=== PATIENT | male | born 1980 | race Two or more races ===

== ENCOUNTER 2018-05-03 15:48 | Emergency (ER) | payer BC, OTHER ==
--- NOTE | 2018-05-03 16:09 | PDOC ---
Rapid Medical Evaluation Medical Evaluation: Allergies Allergy/AdvReac Type Severity Reaction Status Date / Time No Known Allergies Allergy Verified 10/04/12 22:07 05/03/18 16:00 I have performed a brief in-person evaluation of this patient. The patient presents with a chief complaint of: [place] "something pop" in upper abd and radiating down umbilicus today while at work. No n/v/f/c or change in BM. Dx w/ ?umbilical hernia remotely Pertinent physical exam findings:Tachy to 101 F and sarahy very uncomfortable w/ reducible but painful hernia to umbilicus I have ordered the following:labs The patient will proceed to the ED for further evaluation Discharge Disposition - Diagnosis Abdominal pain Qualifiers: Abdominal location: periumbilical Qualified Code(s): R10.33 - Periumbilical pain - Referrals - Patient Instructions - Post Discharge Activity
[2018-05-03 16:11] VITALS: BP 122/72; TEMP 98.5; BMI 29.0
[2018-05-03 18:41] LABS: BASO % 1.1 % (0-2.0); EOS % 1.2 % (0-4.5); HEMATOCRIT 40.4 % (35.4-49); HEMOGLOBIN 13.5 GM/dL (11.7-16.9); MCH 28.7 pg (25.7-33.7); MCHC 33.4 g/dl (32.0-35.9); MEAN CELL VOLUME 86.1 fl (80-96); MEAN PLT VOLUME 7.7 fl (7.5-11.1); MONO % 5.6 % (3.8-10.2); NEUT % 58.1 % (42.8-82.8); PLATELET COUNT 201 K/MM3 (134-434); RBC 4.69 M/mm3 (4.00-5.60); WHITE BLOOD COUNT 9.7 K/mm3 (4.0-10.0)
[2018-05-03] MEDS ORDERED: SODIUM CHLORIDE 0.9% 500 ML INFUS.BAG IV ONE (19:15)
[2018-05-03 19:21] LABS: URINE APPEARANCE CLEAR; URINE BILIRUBIN NEGATIVE (<2.0 mg/dL); URINE COLOR YELLOW; URINE GLUCOSE (UA) NEGATIVE (NEGATIVE); URINE KETONE NEGATIVE (NEGATIVE); URINE LEUK ESTERASE NEGATIVE (NEGATIVE); URINE NITRITE NEGATIVE (NEGATIVE); URINE PROTEIN NEGATIVE (NEGATIVE)
--- NOTE | 2018-05-03 19:21 | PDOC ---
History of Present Illness - General Chief Complaint: Pain, Acute Stated Complaint: ABD PAIN Time Seen by Provider: 05/03/18 16:10 - History of Present Illness Initial Comments: The patient is a 37M who presents with 1 day of umbilical abdominal pain after feeling a 'pop' s/p lifting something heavy. He states he has a several year history of having an umbilical hernia. He states that he generally does not have pain at this site, it is always reducible, and he denies symptoms of obstruction. He denies fevers/chills, N/V/C/D, or blood in his stool. His main concern is if he needs surgery at this point or if he will be able to go back to work Sunday. 05/03/18 19:16 Past History - Past Medical History Allergies/Adverse Reactions: Allergies Allergy/AdvReac Type Severity Reaction Status Date / Time No Known Allergies Allergy Verified 05/03/18 16:07 Home Medications: Ambulatory Orders NK [No Known Home Medication] 05/03/18 COPD: No Other medical history: DENIES. - Immunization History Td Vaccination: No Immunization Up to Date: No - Suicide/Smoking/Psychosocial Hx Smoking Status: No Smoking History: Former smoker Have you smoked in the past 12 months: Yes Number of Cigarettes Smoked Daily: 0 Cigars Per Day: 0 Information on smoking cessation initiated: No Review of Systems - Review of Systems Able to Perform ROS?: Yes Comments:: GENERAL/CONSTITUTIONAL: No fever or chills. No weakness HEAD, EYES, EARS, NOSE AND THROAT: No change in vision. No ear pain or discharge. No sore throat CARDIOVASCULAR: No chest pain or shortness of breath RESPIRATORY: No cough, wheezing, or hemoptysis GASTROINTESTINAL: No nausea, vomiting, diarrhea or constipation GENITOURINARY: No dysuria, frequency, or change in urination MUSCULOSKELETAL: No joint or muscle swelling or pain. No neck or back pain SKIN: No rash NEUROLOGIC: No headache, vertigo, loss of consciousness, or change in strength/ sensation ENDOCRINE: No increased thirst. No abnormal weight change HEMATOLOGIC/LYMPHATIC: No anemia, easy bleeding, or history of blood clots ALLERGIC/IMMUNOLOGIC: No hives or skin allergy 05/03/18 19:21 Is the patient limited Vietnamese proficient: No *Physical Exam - Vital Signs Last Vital Signs Temp Pulse Resp BP Pulse Ox 98.5 F 101 H 19 122/72 100 08/10/18 16:07 05/03/18 16:07 05/03/18 16:07 05/03/18 16:07 05/03/18 16:07 - Physical Exam Comments: GENERAL: Awake, alert, and fully oriented, in no acute distress HEAD: No signs of trauma, normocephalic, atraumatic EYES: PERRL, EOMI, sclera anicteric, conjunctiva clear ENT: Hearing grossly normal, nares patent, oropharynx clear without exudates. Moist mucosa NECK: Normal ROM, supple LUNGS: No distress, speaks full sentences, clear to auscultation bilaterally HEART: Regular rate and rhythm, normal S1 and S2, no murmurs appreciated, peripheral pulses normal and equal bilaterally ABDOMEN: Soft, 1cm x 1cm umbilical hernia, reducible, mild TTP at site of hernia , normoactive bowel sounds. No guarding, no rebound EXTREMITIES : Normal inspection, Normal range of motion, no edema NEUROLOGICAL: Cranial nerves II through XII grossly intact. Normal speech, normal gait, no focal sensorimotor deficits SKIN: Warm, Dry, normal turgor, no rashes or lesions noted 05/03/18 19:22 ED Treatment Course - LABORATORY CBC & Chemistry Diagram: 05/03/18 18:26 05/03/18 18:26 - ADDITIONAL ORDERS Additional order review: 05/03/18 18:26 RBC 4.69 MCV 86.1 MCHC 33.4 RDW 14.0 MPV 7.7 Neutrophils % 58.1 Lymphocytes % 34.0 Monocytes % 5.6 Eosinophils % 1.2 Basophils % 1.1 Medical Decision Making - Medical Decision Making The patient is a 37M who presents with umbilical abdominal pain and a primary umbilical hernia s/p lifting a heavy object at work today ED course NS 1L IV once for hydration/resuscitation labs pending Plan for DC and f/u with general surgery for evaluation for surgical repair. 05/03/18 19:18 Repeat vitals HR 56 SpO2 98% RA Dispo: home with outpatient surgery f/u 05/03/18 20:18 *DC/Admit/Observation/Transfer Diagnosis at time of Disposition: Abdominal pain Qualifiers: Abdominal location: periumbilical Qualified Code(s): R10.33 - Periumbilical pain - Discharge Dispostion Disposition: HOME Condition at time of disposition: Improved Decision to Admit order: No - Referrals Referrals: Emanuel Carmichael MD [Staff Physician] - - Patient Instructions Printed Discharge Instructions: Abdominal Hernia - Post Discharge Activity Forms/Work/School Notes: Back to Work
[2018-05-03 19:29] LABS: INR 1.03 (0.83-1.09); PROTHROMBIN TIME (PATIENT) 11.6 SEC (9.7-13.0)
[2018-05-03 19:30] LABS: ALBUMIN 3.4 g/dl (3.4-5.0); ANION GAP 7 (8-16); BLOOD UREA NITROGEN 12 mg/dL (7-18); CALCIUM 9.1 mg/dL (8.5-10.1); CHLORIDE 112 mmol/L (98-107); CO2 28 mmol/L (21-32); CREATININE 0.9 mg/dL (0.7-1.3); GLUCOSE,RANDOM 73 mg/dL (74-106); POTASSIUM 4.2 mmol/L (3.5-5.1); SGOT/AST 12 U/L (15-37); SGPT/ALT 21 U/L (12-78); SODIUM 147 mmol/L (136-145)
[2018-05-03 19:31] LABS: ALK PHOS 68 U/L (45-117); BILIRUBIN,TOTAL 0.2 mg/dL (0.2-1.0); TOT PROT 6.1 g/dl (6.4-8.2)
--- NOTE | 2018-05-03 19:53 | PDOC ---
Attending Attestation - Resident Resident Name: Eugene Turk - ED Attending Attestation I have performed the following: I have examined & evaluated the patient, The case was reviewed & discussed with the resident, I agree w/resident's findings & plan, Exceptions are as noted - HPI HPI: 05/03/18 19:47 37 M with h/o umbilical hernia presents to ED with periumbilical pain while working out. Pt states that as he was lifting weights, he felt a sudden pop around his belly button associated with instant pain. Pt states that he stopped working out, and the pain gradually subsided. He denies N/V. Denies abdominal distention. Denies constipation. Denies feeling anything protruding from his hernia. Pt states that he has had an umbilical hernia for about 7 years and has opted not to have it surgically repaired. - Physicial Exam PE: 05/03/18 19:53 "GENERAL: Awake, alert, and fully oriented, in no acute distress. HEAD: No signs of trauma EYES: PERRLA, EOMI, sclera anicteric, conjunctiva clear ENT: Auricles normal inspection, hearing grossly normal, nares patent, oropharynx clear without exudates. Moist mucosa NECK: Nontender, no stepoffs, Normal ROM, supple, no lymphadenopathy, JVD, or masses LUNGS: Breath sounds equal, clear to auscultation bilaterally. No wheezes, and no crackles HEART: Regular rate and rhythm, normal S1 and S2, no murmurs, rubs or gallops ABDOMEN: + umbilical wall defect with no palpable protruding mass, Soft, nontender, normoactive bowel sounds. No guarding, no rebound. No masses EXTREMITIES: Normal range of motion, no edema. No clubbing or cyanosis. No cords, erythema, or tenderness NEUROLOGICAL: Cranial nerves II through XII intact. 5/5 strength and sensation in all extremities, Normal speech, normal gait, normal cerebellar function SKIN: Warm, Dry, normal turgor, no rashes or lesions noted." - Medical Decision Making 05/03/18 19:53 37 M with umbilical hernia, no sign of incarcerated hernia on exam. No obstructive symptoms, no abdominal tenderness. - f/u surgery as outpt 05/03/18 20:16 Labs wnl, pt with HR 52 without intervention Pt is well appearing, with normal vitals. Clinically stable for DC at this time. I discussed the physical exam findings, ancillary test results and final diagnoses with the patient. I answered all of the patient's questions. The patient was satisfied with the care received and felt comfortable with the discharge plan and treatment plan. The patient agrees to follow up with the primary care physician within 24-72 hours.
[2018-05-05 14:44] VITALS: PULSE 58
== END 2018-05-03 20:38 | disposition home or self-care (01) ==
LOC: JER 15:48
PROC: 3E0337Z Introduction of Electrolytic and Water Balance Substance into Peripheral Vein, Percutaneous Approach (ICD-10-PCS; principal; 2018-05-03)
DX: R10.33 Periumbilical pain (principal); Z87.891 Personal history of nicotine dependence
CPT/HCPCS: 36415; 80053; 81003; 85025; 85610; 86850; 86900; 86901; 99282-25

== ENCOUNTER 2020-04-09 14:35 | Emergency (ER) | payer BC, OTHER ==
[2020-04-09 14:43] VITALS: BP 139/90; PULSE 75; TEMP 98.8; BMI 31.6
[2020-04-09] MEDS ORDERED: ACETAMINOPHEN 500 MG TABLET (FP) PO ONE (14:43)
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
[2020-04-09] MEDS ORDERED: ACETAMINOPHEN 325 MG TABLET (FP) ONE (14:51)
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
[2020-04-09] MEDS ORDERED: METOCLOPRAMIDE HCL 10 MG TABLET (FP) PO ONE ×2 (15:58→16:27)
[2020-04-09] MEDS ORDERED: IBUPROFEN 400 MG TABLET (FP) PO ONE ×2 (15:58→16:26)
== END 2020-04-09 17:12 | disposition home or self-care (01) ==
LOC: JERFT 14:35
DX: R51 Headache (principal)
CPT/HCPCS: 70450-TC; 99284-25